=== PATIENT | male | born 1985 | race Caucasian/White ===

== ENCOUNTER → 2017-12-13 | Emergency (ER) | payer OTHER ==
[~2017-12-13] VITALS: Ht 165.1 cm; Wt 52.6 kg
[~2017-12-13] MED LIST: ALBUTEROL0.63 MG/3; FLOVENT DISKUS50 MCG; KETO10TA2 PO; MUCINEX DM ER1 EAC1 PO; OSEL75CA PO; SINGULAIR10 MG; TESSALON PERLE100 MG PO
== END | disposition home or self-care (01) ==
LOC: ER 19:28
DX: B34.9 Viral infection, unspecified (principal); J11.1 Influenza due to unidentified influenza virus with other respiratory manifestations